=== PATIENT | male | born 1970 | race Caucasian/White ===

== ENCOUNTER 2022-06-29 02:23 | Outpatient (CLI) | payer OTHER, SELFPAY ==
--- NOTE | 2022-06-29 07:30 | DI.MRI_ITS ---
Exam(s) MR IAC BRAIN WO/W EXAM: MR IAC BRAIN WO/W CLINICAL HISTORY: Asymmetrical hearing loss,h90.3. TECHNIQUE: Multiplanar multisequence MRI of the brain and internal auditory canals was performed. CONTRAST MATERIAL: IV Contrast: 20 mL of Dotarem contrast administered. COMPARISON: No exams were available for comparison FINDINGS: VENTRICLES AND EXTRA AXIAL SPACES: Normal in size and morphology for the patient's age. HEMORRHAGE: None. CEREBRAL PARENCHYMA: No focus of restricted diffusion to suggest acute infarct. No space-occupying le christofer identified. MIDLINE SHIFT: None. BRAINSTEM/CEREBELLUM: Normal. CALVARIUM: Normal. ENHANCEMENT: No suspicious enhancement identified. VISUALIZED PARANASAL SINUSES/MASTOIDS: Mucous retention cyst or polyp in the left maxillary sinus. BOIS FORTE OF [place]: Normal flow void. PITUITARY GLAND: Unremarkable. IAC/CP ANGLE: The internal auditory canals are within normal limits. The cerebellar pontine angles ar e unremarkable. No enhancing lesions are seen. Visualized portion of the facial nerves appear within normal limits. OTHER FINDINGS: None. IMPRESSION: No evidence of an intracranial mass or enhancing lesion. DATA REPOSITORY:
[2022-06-29] MEDS: Gadoterate meglumine 20 ML SYRINGE IVP (09:36)
[2022-06-29] MEDS: Normal Saline Flush 10 ML SYR IJ (09:37)
== END 2022-06-29 02:43 ==
LOC: DI 02:23
PROVIDERS: PCP Internal Medicine; Visit Provider Registered Nurse Maternal Newborn
DX: H90.3 Sensorineural hearing loss, bilateral (principal)
CPT/HCPCS: 70553